=== PATIENT | female | born 1985 | race Caucasian/White ===

== ENCOUNTER 2016-04-04 02:29 | Emergency (ER) | payer BC ==
[~2016-04-04 02:29] MED LIST: CYCL10TA2 PO; NAPR250T2 PO
[2016-04-04] MEDS ORDERED: IV NORMAL SALINE 1000ML BAG 1,000 ML IV ONE ×2 (03:00→03:45)
[2016-04-04 03:02] LABS: BASO % 0 % (0-3); EOS % 0 % (0-3); HEMATOCRIT 38.5 % (36.0-47.0); HEMOGLOBIN 12.8 g/dL (12.0-15.5); LYMPH # 0.6 x10^3/uL (1.0-4.8); LYMPH % 10 % (24-48); MEAN CORPUSCULAR HEMOGLOBIN 30 pg (25-35); MEAN CORPUSCULAR HGB CONC 33 g/dL (31-37); MEAN CORPUSCULAR VOLUME 89 fL (79-100); MONO % 3 % (0-9); NEUT % 87 % (31-73); PLATELET COUNT 181 x10^3/uL (140-400); RED BLOOD COUNT 4.33 x10^6/uL (3.50-5.40); RED CELL DISTRIBUTION WIDTH 12.2 % (11.5-14.5)
[2016-04-04] MEDS ORDERED: INSULIN REGULAR 100 UNIT/ML 10ML VIAL. IV ONE (03:15)
[2016-04-04 03:34] LABS: CALCIUM 8.6 mg/dL (8.5-10.1); CREATININE 0.9 mg/dL (0.6-1.0); GFR 72.1
[2016-04-04 03:40] LABS: ALBUMIN 3.4 g/dL (3.4-5.0); DIRECT BILIRUBIN 0.1 mg/dL (0.0-0.2); TOTAL BILIRUBIN 0.5 mg/dL (0.2-1.0); TOTAL PROTEIN 6.7 g/dL (6.4-8.2)
[2016-04-04] MEDS ORDERED: ACETAMINOPHEN 325 MG TABLET. PO ONE (04:00)
[2016-04-04 04:51] LABS: BILIRUBIN,URINE NEGATIVE (NEG); GLUCOSE,URINE >=1000 mg/dL (NEG); NITRITE,URINE NEGATIVE (NEG); PROTEIN,URINE NEGATIVE (NEG-TRACE); UROBILINOGEN,URINE 0.2 mg/dL (0.2 mg/dL)
[2016-04-04 05:30] LABS: BACTERIA,URINE 0 /HPF (0-FEW); SQUAMOUS EPITHELIAL CELL,UR FEW /LPF
[2016-04-04] MEDS ORDERED: GABAPENTIN 100 MG CAPSULE. PO ONE (05:30)
[2016-04-04] MEDS ORDERED: ACET325T9 PO (05:36)
[2016-04-04] MEDS ORDERED: OSEL75CA PO (05:37)
--- NOTE | 2016-04-04 05:37 | PHYS DOC ---
Past Medical History Past Medical History: Diabetes-Type I Additional Past Medical Histor: neuropathy, SVT, ADD,chemical cardioversion Past Surgical History: Alcohol Use: Occasionally Drug Use: None Adult General Chief Complaint Chief Complaint: HYPERGLYCEMIA HPI HPI 31-year-old female presenting to the emergency department today with hyperglycemia. She reports having elevated blood sugars over the past 24 hours. She currently is on ciprofloxicin for a UTI. She reports having improvement in her urinary tract infection symptoms. She also complains of generalized body aches. She denies neck stiffness or confusion. She denies any rashes. She denies abdominal pain. She denies nausea or vomiting. Onset 2-3 days Location generalized Duration intermittent No alleviating factors present. Review of Systems Review of Systems ROS negative for chest pain shortness of breath neck stiffness confusion. Negative for abdominal pain nausea vomiting. She denies meningismus. All other review of systems is negative unless otherwise noted in history of present illness. Current Medications Current Medications Current Medications Medications (Trade) Dose Ordered Sig/Lizbeth Start Time Stop Time Status Last Admin Dose Admin Acetaminophen 650 mg 650 mg 1X ONCE 04/04/16 04:00 04/04/16 04:01 DC 04/04/16 03:42 650 MG Gabapentin (Neurontin) 100 mg 1X ONCE 04/04/16 05:30 04/04/16 05:31 DC 04/04/16 05:24 100 MG Insulin Human Regular (Novolin R Vial) 5 unit 1X ONCE 04/04/16 03:15 04/04/16 03:16 DC Sodium Chloride (Iv Sodium Chloride 0.9% 1000ml Bag) 1,000 ml @ 1,000 mls/hr 1X ONCE 04/04/16 03:45 04/04/16 04:44 DC 04/04/16 03:44 1,000 MLS/HR Allergies Allergies Allergies Coded Allergies Type Severity Reaction Last Updated Verified codeine Allergy Intermediate 05/02/15 No Physical Exam Physical Exam Constitutional: Well developed, well nourished, no acute distress, non-toxic appearance. HENT: Normocephalic, atraumatic, bilateral external ears normal, oropharynx moist, no oral exudates, nose normal. [] Eyes: PERRLA, EOMI, conjunctiva normal, no discharge. No evidence of meningismus. Negative Kernig sign. Negative Brudzinski sign. Neck: Normal range of motion, no tenderness, supple, no stridor. Cardiovascular:Heart rate regular rhythm, no murmur [] Lungs & Thorax: Bilateral breath sounds clear to auscultation Abdomen: Bowel sounds normal, soft, no tenderness, no masses, no pulsatile masses. [] Skin: Warm, dry, no erythema, no rash. No petechial rash present. Back: No tenderness, no CVA tenderness. Extremities: No tenderness, no cyanosis, no clubbing, ROM intact, no edema. [] Neurologic: Alert and oriented X 3, normal motor function, normal sensory function, no focal deficits noted. [] Psychologic: Affect normal, judgement normal, mood normal. Current Patient Data Vital Signs Vital Signs Date Time Temp Pulse Resp B/P Pulse Ox O2 Delivery O2 Flow Rate FiO2 04/04/16 04:00 99 16 04/04/16 02:38 99.4 126/72 98 Room Air 99.4 Lab Values Laboratory Tests Test 04/04/16 02:49 04/04/16 04:21 04/04/16 04:30 04/04/16 04:38 White Blood Count 6.0x10^3/uL (4.0-11.0) Red Blood Count 4.33x10^6/uL (3.50-5.40) Hemoglobin 12.8g/dL (12.0-15.5) Hematocrit 38.5% (36.0-47.0) Mean Corpuscular Volume 89fL (79-100) Mean Corpuscular Hemoglobin 30pg (25-35) Mean Corpuscular Hemoglobin Concent 33g/dL (31-37) Red Cell Distribution Width 12.2% (11.5-14.5) Platelet Count 181x10^3/uL (140-400) Neutrophils (%) (Auto) 87% (31-73) H Lymphocytes (%) (Auto) 10% (24-48) L Monocytes (%) (Auto) 3% (0-9) Eosinophils (%) (Auto) 0% (0-3) Basophils (%) (Auto) 0% (0-3) Neutrophils # (Auto) 5.2x10^3uL (1.8-7.7) Lymphocytes # (Auto) 0.6x10^3/uL (1.0-4.8) L Monocytes # (Auto) 0.2x10^3/uL (0.0-1.1) Eosinophils # (Auto) 0.0x10^3/uL (0.0-0.7) Basophils # (Auto) 0.0x10^3/uL (0.0-0.2) Platelet Estimate Pending Sodium Level 136mmol/L (136-145) Potassium Level 4.0mmol/L (3.5-5.1) Chloride Level 102mmol/L (98-107) Carbon Dioxide Level 28mmol/L (21-32) Anion Gap 6 (6-14) Blood Urea Nitrogen 16mg/dL (7-20) Creatinine 0.9mg/dL (0.6-1.0) Estimated GFR (Cockcroft-Gault) 72.1 Glucose Level 260mg/dL (70-99) H Serum Osmolality 294mOsm/Kg (279-304) Calcium Level 8.6mg/dL (8.5-10.1) Total Bilirubin 0.5mg/dL (0.2-1.0) Direct Bilirubin 0.1mg/dL (0.0-0.2) Aspartate Amino Transferase (AST) 12U/L (15-37) L Alanine Aminotransferase (ALT) 22U/L (14-59) Alkaline Phosphatase 91U/L (46-116) Troponin I Quantitative < 0.017ng/mL (0.000-0.055) Total Protein 6.7g/dL (6.4-8.2) Albumin 3.4g/dL (3.4-5.0) Lipase 227U/L (73-393) Glucose (Fingerstick) 238mg/dL (70-99) H Urine Collection Type Unknown Urine Color Yellow Urine Clarity Clear Urine pH 6.0 Urine Specific [place] >=1.030 Urine Protein Negativemg/dL (NEG-TRACE) Urine Glucose (UA) >=1000mg/dL (NEG) Urine Ketones (Stick) Negativemg/dL (NEG) Urine Blood Moderate (NEG) Urine Nitrite Negative (NEG) Urine Bilirubin Negative (NEG) Urine Urobilinogen Dipstick 0.2mg/dL (0.2 mg/dL) Urine Leukocyte Esterase Negative (NEG) Urine RBC 3-5/HPF (0-2) Urine WBC 1-4/HPF (0-4) Urine Squamous Epithelial Cells Few/LPF Urine Bacteria 0/HPF (0-FEW) Urine Mucus Slight/LPF Influenza Type A Antigen Negative (NEGATIVE) Influenza Type B Antigen Negative (NEGATIVE) Laboratory Tests 04/04/16 02:49 Laboratory Tests 04/04/16 02:49 EKG EKG [] Radiology/Procedures Radiology/Procedures [] Course & Med Decision Making Course & Med Decision Making Pertinent Labs and Imaging studies reviewed. (See chart for details) 31-year-old female presenting to the emergency department today with hyperglycemia and generalized body aches. On initial evaluation the patient's temperature was afebrile. Heart rate was elevated at 120. Blood pressure within normal limits. On physical examination the patient had a nontender abdomen no evidence of meningitis. CBC unremarkable. Urinalysis negative for nitrites negative for leuk esterase. Elevated specific gravity. Urine glucose positive. Not suggestive of infection. Chemistry panel showed mild hyperglycemia without evidence of acidosis. No ketones in the urine. Troponin negative. Osmolality within normal limits. The patient was given IV fluids for her tachycardia. She was given acetaminophen for her body aches. The patient continually requested opioid medications for her body aches. The patient appeared comfortable in the room when I was evaluating her. She requested that I administer her gabapentin for her leg pain. I prescribed this for her while she was in the emergency department. He was generally agitated during her visit in the emergency department. I attempted to address the patient's concerns however unfortunately the patient remained unhappy. Influenza testing was negative. The patient is currently on antibiotics. I recommended the patient follow up with her primary care physician for reassessment over the next 2 or 3 days. Dragon Disclaimer Dragon Disclaimer This electronic medical record was generated, in whole or in part, using a voice recognition dictation system. Departure Departure Impression: Primary Impression: Hyperglycemia Additional Impressions: Fever Body aches Disposition: HOME, SELF-CARE Condition: STABLE Referrals: NO PCP (PCP) MARÍA ELENA RUCKER MD Patient Instructions: Fever, Myalgia, Adult Additional Instructions: Thank you for allowing us to participate in your care today. Followup with your primary care physician in 3 days if your symptoms do not improve. If you do not have a primary care provider you can ask for a list of our primary care providers. Return to the emergency department you have any new or concerning findings. This should be evaluated by the primary care physician and any necessary consulting services for continued management within a few days after discharge. Return to emergency room if you have any new or concerning symptoms including but not limited to fever, chills, nausea, vomiting, intractable pain, any new rashes, chest pain, shortness of air, uncontrolled bleeding, difficulty breathing, and/or vision loss. Scripts Acetaminophen (Tylenol)325 Mg [id number] Mg PO PRN Q8HRS PRN PAIN #20 Prov:PATRICIA CORMIER MD 04/04/16 Problem Qualifiers PATRICIA CORMIER MD Apr 04, 2016 05:37
[2016-04-04 05:38] LABS: OBC FLU VALID
[2016-04-04 05:59] VITALS: BP 126/60
[2016-04-04 08:21] LABS: % EOS 1 % (0-5); PLT ESTIMATE ADEQUATE (ADEQUATE)
== END 2016-04-04 06:37 | disposition home or self-care (01) ==
LOC: ER 02:29
DX: E10.65 Type 1 diabetes mellitus with hyperglycemia (principal); R50.9 Fever, unspecified; R52 Pain, unspecified; E10.40 Type 1 diabetes mellitus with diabetic neuropathy, unspecified; Z88.5 Allergy status to narcotic agent
CPT/HCPCS: 36415; 80048; 80076; 81001; 82947; 83690; 83930; 84484; 85007; 85027; 87804; 96360; 96361; 99284; J7030

== ENCOUNTER 2016-12-31 00:32 | Emergency (ER) | payer BC ==
[~2016-12-31] VITALS: Ht 165.1 cm; Wt 77.1 kg
[~2016-12-31 00:32] MED LIST changes: +ACET325T9 PO; -NAPR250T2 PO; +NAPR250T6 PO; +OSEL75CA PO
[2016-12-31] MEDS ORDERED: IV NORMAL SALINE 1000ML BAG 1,000 ML IV SCH (00:45)
[2016-12-31] MEDS ORDERED: ADENOSINE 6 MG/2 ML VIAL. IV ONE (00:45)
[2016-12-31 00:55] LABS: BASO % 1 % (0-3); EOS % 2 % (0-3); HEMATOCRIT 39.3 % (36.0-47.0); HEMOGLOBIN 13.1 g/dL (12.0-15.5); LYMPH # 2.8 x10^3/uL (1.0-4.8); LYMPH % 45 % (24-48); MEAN CORPUSCULAR HEMOGLOBIN 30 pg (25-35); MEAN CORPUSCULAR HGB CONC 33 g/dL (31-37); MEAN CORPUSCULAR VOLUME 90 fL (79-100); MONO % 9 % (0-9); NEUT % 43 % (31-73); PLATELET COUNT 183 x10^3/uL (140-400); RED BLOOD COUNT 4.37 x10^6/uL (3.50-5.40); RED CELL DISTRIBUTION WIDTH 12.3 % (11.5-14.5); WHITE BLOOD COUNT 6.4 x10^3/uL (4.0-11.0)
[2016-12-31 01:07] LABS: NEG OBC SER NEG; POS OBC SER POS
--- NOTE | 2016-12-31 01:11 | PHYS DOC ---
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 She states she was getting ready to fall asleep approximately 25 minutes prior to arrival when she noticed her heart beating very quickly. She's had supraventricular tachycardia in the past. She states "I've had it 8 times and most the times I have to receive Adenocard". She is a Type I diabetic (age 17 onset) who went to the [facility] today. She has an insulin pump and her last blood sugar was 190 and was given 8U regular insulin per pump. No nausea or vomiting. No chest pain. She is very anxious. No recent travel. No SOA. She is followed by a ase master mechanic "but I don't want to get the ablation." Review of Systems Review of Systems Constitutional: Denies fever or chills Eyes: Denies change in visual acuity, redness, or eye pain HENT: Denies nasal congestion or sore throat Respiratory: Denies cough or shortness of breath Cardiovascular: Rapid heart rate GI: Denies abdominal pain, nausea, vomiting, bloody stools or diarrhea : Denies dysuria or hematuria Musculoskeletal: Denies back pain or joint pain Integument: Denies rash or skin lesions Neurologic: Denies headache, focal weakness or sensory changes Current Medications Current Medications Current Medications Medications (Trade) Dose Ordered Sig/Lizbeth Start Time Stop Time Status Last Admin Dose Admin Adenosine (Adenocard) 6 mg 1X ONCE 12/31/16 00:45 12/31/16 00:46 DC 12/31/16 00:56 6 MG Sodium Chloride 1,000 ml @ 1,000 mls/hr Q1H 12/31/16 00:45 12/31/16 01:44 DC 12/31/16 00:45 1,000 MLS/HR Allergies Allergies Allergies Coded Allergies Type Severity Reaction Last Updated Verified codeine Allergy Intermediate 05/02/15 No Physical Exam Physical Exam Constitutional: Well developed, well nourished, no acute distress, non-toxic appearance. HENT: Normocephalic, atraumatic, bilateral external ears normal, oropharynx moist, no oral exudates, nose normal. Eyes: PERRLA, EOMI, conjunctiva normal, no discharge. Neck: Normal range of motion, no tenderness, supple, no stridor. Cardiovascular:Heart rate regular rhythm; tachycardic, no murmur Lungs & Thorax: Bilateral breath sounds clear to auscultation Abdomen: Bowel sounds normal, soft, no tenderness, no masses, no pulsatile masses. Skin: Warm, dry, no erythema, no rash. Back: No tenderness, no CVA tenderness. Extremities: No tenderness, no cyanosis, no clubbing, ROM intact, no edema. Neurologic: Alert and oriented X 3, normal motor function, normal sensory function, no focal deficits noted. Psychologic: Affect normal, judgement normal, mood normal. Current Patient Data Vital Signs Vital Signs Date Time Temp Pulse Resp B/P (MAP) Pulse Ox O2 Delivery O2 Flow Rate FiO2 12/31/16 01:45 116 20 130/75 (93) 99 Room Air 12/31/16 00:52 97.7 97.7 Lab Values Laboratory Tests Test 12/31/16 00:47 12/31/16 00:50 12/31/16 01:00 12/31/16 01:29 White Blood Count 6.4 x10^3/uL (4.0-11.0) Red Blood Count 4.37 x10^6/uL (3.50-5.40) Hemoglobin 13.1 g/dL (12.0-15.5) Hematocrit 39.3 % (36.0-47.0) Mean Corpuscular Volume 90 fL (79-100) Mean Corpuscular Hemoglobin 30 pg (25-35) Mean Corpuscular Hemoglobin Concent 33 g/dL (31-37) Red Cell Distribution Width 12.3 % (11.5-14.5) Platelet Count 183 x10^3/uL (140-400) Neutrophils (%) (Auto) 43 % (31-73) Lymphocytes (%) (Auto) 45 % (24-48) Monocytes (%) (Auto) 9 % (0-9) Eosinophils (%) (Auto) 2 % (0-3) Basophils (%) (Auto) 1 % (0-3) Neutrophils # (Auto) 2.8 x10^3uL (1.8-7.7) Lymphocytes # (Auto) 2.8 x10^3/uL (1.0-4.8) Monocytes # (Auto) 0.6 x10^3/uL (0.0-1.1) Eosinophils # (Auto) 0.1 x10^3/uL (0.0-0.7) Basophils # (Auto) 0.0 x10^3/uL (0.0-0.2) Prothrombin Time 13.0 SEC (11.7-14.0) Prothrombin Time INR 1.0 (0.8-1.1) D-Dimer (Cassidy) 0.69 ug/mlFEU (0.00-0.50) H Sodium Level 140 mmol/L (136-145) Potassium Level 3.8 mmol/L (3.5-5.1) Chloride Level 102 mmol/L (98-107) Carbon Dioxide Level 31 mmol/L (21-32) Anion Gap 7 (6-14) Blood Urea Nitrogen 15 mg/dL (7-20) Creatinine 0.9 mg/dL (0.6-1.0) Estimated GFR (Cockcroft-Gault) 72.1 BUN/Creatinine Ratio 17 (6-20) Glucose Level 355 mg/dL (70-99) H Calcium Level 9.8 mg/dL (8.5-10.1) Total Bilirubin 0.2 mg/dL (0.2-1.0) Aspartate Amino Transferase (AST) 17 U/L (15-37) Alanine Aminotransferase (ALT) 34 U/L (14-59) Alkaline Phosphatase 108 U/L (46-116) Creatine Kinase 74 U/L (26-192) Creatine Kinase MB (Mass) 0.7 ng/mL (0.0-3.6) Creatine Kinase MB Relative Index % (0-4) Troponin I Quantitative < 0.017 ng/mL (0.000-0.055) MD-Sir-S-Type Natriuretic Peptide 70 pg/mL (0-124) Total Protein 7.1 g/dL (6.4-8.2) Albumin 3.6 g/dL (3.4-5.0) Albumin/Globulin Ratio 1.0 (1.0-1.7) Lipase 154 U/L (73-393) Thyroid Stimulating Hormone (TSH) 2.419 uIU/mL (0.358-3.74) Serum Test, Qualitative Negative (NEG) Glucose (Fingerstick) 354 mg/dL (70-99) H Urine Collection Type Unknown Urine Color Yellow Urine Clarity Clear Urine pH 7.5 Urine Specific [place] 1.015 Urine Protein 30 mg/dL (NEG-TRACE) Urine Glucose (UA) >=1000 mg/dL (NEG) Urine Ketones (Stick) Negative mg/dL (NEG) Urine Blood Moderate (NEG) Urine Nitrite Negative (NEG) Urine Bilirubin Negative (NEG) Urine Urobilinogen Dipstick 0.2 mg/dL (0.2 mg/dL) Urine Leukocyte Esterase Negative (NEG) Urine RBC 6-10 /HPF (0-2) Urine WBC 1-4 /HPF (0-4) Urine Squamous Epithelial Cells Few /LPF Urine Bacteria Few /HPF (0-FEW) Urine Mucus Slight /LPF Urine Opiates Screen Neg (NEG) Urine Methadone Screen Neg (NEG) Urine Barbiturates Neg (NEG) Urine Phencyclidine Screen Neg (NEG) Urine Amphetamine/Methamphetamine Neg (NEG) Urine Benzodiazepines Screen Neg (NEG) Urine Cocaine Screen Neg (NEG) Urine Cannabinoids Screen Neg (NEG) Urine Ethyl Alcohol Neg (NEG) POC Urine HCG, Qualitative Hcg negative (Negative) Laboratory Tests 12/31/16 00:47 Laboratory Tests 12/31/16 00:47 EKG EKG EKG interpreted by myself at 0039 AM with SVT rate 162 EKG interpreted by myself at 0058 am POST ADENOCARD with sinus tachycardia at rate 121. No acute STEMI. Radiology/Procedures Radiology/Procedures PATIENT REFUSED ALL IMAGING. REFUSED CXR AND REFUSES CT ANGIO IMAGING TO R/O PE Course & Med Decision Making Course & Med Decision Making Patient seen upon arrival. She was in SVT. She is a type I diabetic; blood sugar here 354 (she dosed herself with her pump 4 U insulin). IV NS wide open. PROCEDURE: CHEMICAL CARDIOVERSION pre-adenocard: patient understands risk. Placed on monitor tech and bedside defib. P 163, BP 133/80 Patient received adenocard 6 mg at 0055 AM Post adenocard with pulse 90 and BP 161/96 PERC RULE Criteria: Age < than 50 years Heart rate < 100-NO Oxygen saturation > 95% No hemoptysis No estrogen use No prior DVT or PE No unilateral leg swelling No surgery or trauma requiring hospitalization within the prior 4 weeks Lab returned at 0125 AM: Elevated D dimer: EXPLAINED TO PATIENT NEED TO CHECK CT ANGIO AND PATIENT REFUSES. 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 SHE DECLINES ALL FURTHER TREATMENT. SHE UNDERSTANDS FULLY THAT IF SHE HAS A PE SHE CAN FROM IT. SHE STATES SHE WILL SEE HER DOCTOR HERSELF. 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 I spent approximately 30 minutes working and engaged directly in the patient care providing critical care evaluation this includes but not limited to time spent engaged in work directly related to the individual patients care. I spent time at the bedside, reviewing test results, discussing the case with staff, documenting the medical record and time spent with EMS discussing specific treatment issues when the patient presented and during his evaluation. This includes any discussion and updates with family members and/or patient. Dragon Disclaimer Dragon Disclaimer This electronic medical record was generated, in whole or in part, using a voice recognition dictation system. Departure Departure Impression: Primary Impression: SVT (supraventricular tachycardia) Additional Impressions: Elevated d-dimer Type I diabetes mellitus Disposition: 07 AGAINST MEDICAL ADVICE Condition: STABLE Referrals: NO PCP (PCP) Patient Instructions: Supraventricular Tachycardia Additional Instructions: YOU HAD AN ELEVATED D DIMER. THIS IS A TEST THAT IS DONE FOR CLOTS. ONE CONCERN IS THAT BLOOD CLOTS CAN CAUSE THE RAPID HEART RATE. YOU HAVE DECLINED ANY FURTHER TESTING FOR THE PULMONARY EMBOLI. Problem Qualifiers Additional Impressions: Type I diabetes mellitus Diabetes mellitus complication status: with hyperglycemia Qualified Codes: E10.65 - Type 1 diabetes mellitus with hyperglycemia MAGUE LEWIS MD Dec 31, 2016 01:11
[2016-12-31 01:12] LABS: ALBUMIN 3.6 g/dL (3.4-5.0); CALCIUM 9.8 mg/dL (8.5-10.1); CREATININE 0.9 mg/dL (0.6-1.0); GFR 72.1; POTASSIUM 3.8 mmol/L (3.5-5.1); TOTAL BILIRUBIN 0.2 mg/dL (0.2-1.0); TOTAL PROTEIN 7.1 g/dL (6.4-8.2)
[2016-12-31 01:19] LABS: CKMB MASS 0.7 ng/mL (0.0-3.6); CREATINE KINASE 74 U/L (26-192)
[2016-12-31 01:35] LABS: BILIRUBIN,URINE NEGATIVE (NEG); GLUCOSE,URINE >=1000 mg/dL (NEG); NITRITE,URINE NEGATIVE (NEG); PH,URINE 7.5; PROTEIN,URINE 30 mg/dL (NEG-TRACE); UROBILINOGEN,URINE 0.2 mg/dL (0.2 mg/dL)
[2016-12-31 01:41] LABS: BARBITURATES NEG (NEG); BENZODIAZEPINES NEG (NEG); CANNABINOIDS NEG (NEG); COCAINE NEG (NEG); METHADONE NEG (NEG); OPIATES NEG (NEG); PHENCYCLIDINE NEG (NEG)
[2016-12-31 01:44] LABS: BACTERIA,URINE FEW /HPF (0-FEW); SQUAMOUS EPITHELIAL CELL,UR FEW /LPF
[2016-12-31 01:45] VITALS: BP 130/75
--- NOTE | 2016-12-31 06:32 | EKG ---
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
--- NOTE | 2016-12-31 06:37 | EKG ---
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
== END 2016-12-31 01:45 | disposition left against medical advice (07) ==
LOC: ER 00:32
DX: I47.1 Supraventricular tachycardia (principal); R79.89 Other specified abnormal findings of blood chemistry; E10.65 Type 1 diabetes mellitus with hyperglycemia; E10.40 Type 1 diabetes mellitus with diabetic neuropathy, unspecified; F17.210 Nicotine dependence, cigarettes, uncomplicated; F98.8 Other specified behavioral and emotional disorders with onset usually occurring in childhood and adolescence; Z79.4 Long term (current) use of insulin; Z96.41 Presence of insulin pump (external) (internal); Z88.5 Allergy status to narcotic agent
CPT/HCPCS: 36415; 80053; 80307; 81001; 81025; 82553; 82962; 83690; 83880; 84443; 84484; 84703; 85025; 85379; 85610; 93005; 96361; 96374; 99291; J0153; J7030; G0479